=== PATIENT | female | born 1960 | race Hispanic/Latino ===

== ENCOUNTER → 2017-08-24 | Outpatient (CLI) | payer OTHER ==
--- NOTE | 2017-08-24 16:06 | Diagnostic Imaging Report ---
#[id number] - MGSCRBIL #BILATERAL DIGITAL SCREENING MAMMOGRAM WITH CAD: 08/24/2017 CLINICAL: Routine screening. Comparison is made to exams dated: 09/30/2015 mammogram - [facility], 07/14/2013 mammogram and 01/24/2010 mammogram - [facility]. Current study contains 8 films. There are scattered fibroglandular elements in both breasts. Current study was also evaluated with a Computer Aided Detection (CAD) system. There are benign vascular calcifications in both breasts. There also is a benign calcification in the right breast. Bilateral breast implants are intact. No significant masses, calcifications, or other findings are seen in either breast. There has been no significant interval change. IMPRESSION: BENIGN There is no mammographic evidence of malignancy. A 1 year screening mammogram is recommended. The patient will be notified by letter of the results. Jason hester/rosa:08/24/2017 13:13:41 Case Repairer: Kimberly SHARIF(Harjeet)(M), [facility] letter sent: Compared to Prior B9 Mammogram BI-RADS: 2 Benign
== END ==
LOC: MAMMO 09:59 → MERGE 09:59
PROVIDERS: ATTEND Internal Medicine
DX: Z12.31 Encounter for screening mammogram for malignant neoplasm of breast (principal)
CPT/HCPCS: G0202

== ENCOUNTER → 2018-10-03 | Outpatient (CLI) | payer OTHER ==
--- NOTE | 2018-10-03 16:22 | Diagnostic Imaging Report ---
Exam: Right hip 2 views History: Osteoarthritis Comparison: None. Findings: No acute displaced fracture or dislocation. The femoral head projects appropriately over the acetabulum. Mild joint space narrowing and marginal osteophytosis. Bone island in the femoral head. Soft tissues are unremarkable. Impression: No acute osseous abnormalities. Mild degenerative joint disease of the right hip. Signed by: Dr. Atilio Beck M.D. on 10/03/2018 4:19 PM
--- NOTE | 2018-10-03 16:24 | Diagnostic Imaging Report ---
Exam: Lumbar spine complete History: Spondylosis Comparison: None. Findings: There are 5 nonrib-bearing lumbar-type vertebral bodies. No acute displaced fracture or subluxation. Multilevel degenerative disc disease manifest by disc space narrowing and marginal osteophytosis extending from L2-3 through L5 S1. No pars interarticularis defects are identified on the oblique radiographs. Mild facet arthropathy at L5-S1. Sacroiliac joints are intact. Sacral foramina appear intact superiorly. Inferiorly, the sacral body is obscured by rectal gas and stool. Impression: Mild multilevel degenerative disc changes and degenerative facet arthropathy of the lumbar spine. Signed by: Dr. Atilio Beck M.D. on 10/03/2018 4:21 PM
== END ==
LOC: RAD 15:27
PROVIDERS: ATTEND Internal Medicine
DX: M16.11 Unilateral primary osteoarthritis, right hip (principal); M47.816 Spondylosis without myelopathy or radiculopathy, lumbar region
CPT/HCPCS: 72110

== ENCOUNTER → 2018-11-22 | Outpatient (CLI) | payer BC, OTHER ==
--- NOTE | 2018-11-22 17:26 | Diagnostic Imaging Report ---
Exam: Radiographs of the abdomen 2 views. Clinical History: Right-sided pain Comparison: None Findings: Frontal views of the abdomen demonstrate a nonobstructive bowel gas pattern with moderate retained stool. There are no suspicious calcifications.No acute bone abnormality. No free air is seen in the diaphragm. Impression: Findings which could be due to constipation. Signed by: Dr. Jose Quintero M.D. on 11/22/2018 5:22 PM
== END ==
LOC: RAD 16:38
PROVIDERS: ATTEND Internal Medicine
DX: R10.9 Unspecified abdominal pain (principal)
CPT/HCPCS: 74019

== ENCOUNTER → 2019-06-13 | Outpatient (CLI) | payer OTHER | LOC: MAMMO 08:54 | PROVIDERS: ATTEND Internal Medicine | DX: Z12.31 Encounter for screening mammogram for malignant neoplasm of breast (principal) | CPT/HCPCS: 77067 ==

== ENCOUNTER → 2020-01-30 | Outpatient (CLI) | payer OTHER ==
[~2020-01-30] MED LIST: CALCIUM PO; FISH OIL 1,0001 EAC2 PO; IRON PO; MAGNESIUM PO
--- NOTE | 2020-01-30 14:08 | Diagnostic Imaging Report ---
EXAMINATION: CHEST 2 VIEWS INDICATION: Shortness of breath COMPARISON: None FINDINGS: LINES/TUBES:None LUNGS:The lungs are well-inflated. No focal consolidation or pulmonary edema. PLEURA:No pleural effusion or pneumothorax. MEDIASTINUM:The cardiomediastinal silhouette appears normal in size and shape. BONES/SOFT TISSUES:No acute osseous injury. ABDOMEN:No free air under the diaphragm. IMPRESSION: No focal pneumonia or pulmonary edema. Signed by: Yasmin Caputo MD on 01/30/2020 2:04 PM
== END ==
LOC: RAD 13:37
PROVIDERS: ATTEND Internal Medicine
DX: R06.02 Shortness of breath (principal)
CPT/HCPCS: 71046

== ENCOUNTER → 2020-05-05 | Outpatient (CLI) | payer OTHER | LOC: MAMMO 10:30 | PROVIDERS: ATTEND Internal Medicine | DX: N63.20 Unspecified lump in the left breast, unspecified quadrant (principal) | CPT/HCPCS: 77066 ==

== ENCOUNTER → 2020-07-02 | Outpatient (CLI) | payer OTHER | LOC: CT 07:40 | PROVIDERS: ATTEND Internal Medicine | DX: K57.92 Diverticulitis of intestine, part unspecified, without perforation or abscess without bleeding (principal) ==

== ENCOUNTER → 2020-10-15 | Outpatient (CLI) | payer BC ==
[~2020-10-15] MED LIST changes: +DIATRIZOATE MEGL/DIATRIZOA SOD 30 ML BTL PO ONE; +IOPAMIDOL 370 MG/ML 200 ML INFUS..BTL INJ ONE; +SODIUM CHLORIDE 0.9% 500ML 500 ML ONE; +SODIUM CHLORIDE 0.9% 50ML 50 ML ONE
[2020-10-15 08:42] LABS: CREATININE, SERUM 1.19 mg/dL (0.57-1.11)
== END ==
LOC: CT 07:42
PROVIDERS: ATTEND Internal Medicine
DX: K57.92 Diverticulitis of intestine, part unspecified, without perforation or abscess without bleeding (principal)
CPT/HCPCS: 36415; 71260; 74177; 82565; 84520; 96360; J7040; Q9967

== ENCOUNTER → 2021-05-27 | Outpatient (CLI) | payer OTHER ==
[~2021-05-27] MED LIST changes: -DIATRIZOATE MEGL/DIATRIZOA SOD 30 ML BTL PO ONE; -IOPAMIDOL 370 MG/ML 200 ML INFUS..BTL INJ ONE; -SODIUM CHLORIDE 0.9% 500ML 500 ML ONE; -SODIUM CHLORIDE 0.9% 50ML 50 ML ONE
== END ==
LOC: MAMMO 09:34
PROVIDERS: ATTEND Internal Medicine
DX: Z12.31 Encounter for screening mammogram for malignant neoplasm of breast (principal)
CPT/HCPCS: 77067

== ENCOUNTER → 2022-06-01 | Outpatient (CLI) | payer OTHER | LOC: MAMMO 11:04 | PROVIDERS: ATTEND Internal Medicine | DX: Z12.31 Encounter for screening mammogram for malignant neoplasm of breast (principal) | CPT/HCPCS: 77067 ==

== ENCOUNTER → 2022-09-29 | Outpatient (CLI) | payer OTHER ==
[~2022-09-29] MED LIST changes: +OMEPRAZOLE40 MG PO
== END ==
LOC: RAD 09:27
PROVIDERS: ATTEND Internal Medicine
DX: J41.0 Simple chronic bronchitis (principal)
CPT/HCPCS: 71046

== ENCOUNTER → 2024-06-26 | Outpatient (REF) | payer OTHER | LOC: MAMMO 08:26 | PROVIDERS: ATTEND Nurse Practitioner Family | DX: Z12.31 Encounter for screening mammogram for malignant neoplasm of breast (principal) | CPT/HCPCS: 77067 ==